=== PATIENT | male | born 1995 | race Caucasian/White ===

== ENCOUNTER 2022-11-01 19:25 | Emergency (ER) | payer OTHER | END 2022-11-01 21:42 | disposition home or self-care (01) | LOC: JD.ED 19:25 | DX: R07.89 Other chest pain (principal); Z88.5 Allergy status to narcotic agent; Z72.0 Tobacco use | CPT/HCPCS: 36415; 71045; 71045-26; 84484; 85025; 85379; 93005; 93010; 99284; 99285 ==